=== PATIENT | female | born 1980 | race Caucasian/White ===

== ENCOUNTER 2016-08-02 10:53 | Emergency (ER) | payer OTHER ==
[2016-08-02 11:26] LABS: BASO % 0.3 % (0.0-1.0); EOS # 0.1 K/mm3 (0.0-0.50); EOS % 1.8 % (0.0-3.0); LARGE UNSTAINED CELL # 0.1 K/mm3 (0.0-0.4); LARGE UNSTAINED CELL % 2.7 % (0.0-4.0); LYMPH # 1.2 K/mm3 (1.5-4.5); LYMPH % 27.1 % (24.0-44.0); MEAN CORPUSCULAR HEMOGLOBIN 31.2 pg (27.0-33.0); MEAN CORPUSCULAR HGB CONC 35.3 g/dl (32.0-36.5); MEAN CORPUSCULAR VOLUME 88.4 fl (80.0-96.0); MONO # 0.2 K/mm3 (0.0-0.8); MONO % 4.6 % (0.0-5.0); NEUTROPHILS # 2.9 K/mm3 (1.8-7.7); NEUTROPHILS % 63.5 % (36.0-66.0); PLATELET COUNT, AUTOMATED 249 k/mm3 (150-450); RED CELL DISTRIBUTION WIDTH 11.3 % (11.5-14.5); WHITE BLOOD COUNT 4.5 K/mm3 (4.0-10.0)
[2016-08-02 11:51] LABS: CONTROL LINE MONO INT CTR LINE PRESENT
--- NOTE | 2016-08-02 11:51 | REP ---
Clinical: Acute cough. Technique: PA and lateral. Comparison: None. Findings: Mediastinum and cardiac silhouette are normal. Blunting to the right costophrenic angle cannot exclude small right pleural reaction. No obvious consolidation, or pneumothorax. Skeletal structures intact. Impression: Cannot exclude small right pleural reaction. Signed by Waldemar Cortez MD 08/02/2016 11:42 A
[2016-08-02 11:53] LABS: ANION GAP 8 MEQ/L (8-16); BLOOD UREA NITROGEN 8 MG/DL (7-18); CALCIUM LEVEL 8.5 MG/DL (8.5-10.1); CARBON DIOXIDE LEVEL 29 MEQ/L (21-32); CHLORIDE LEVEL 102 MEQ/L (98-107); CREATININE FOR GFR 0.85 MG/DL (0.55-1.02); GLOMERULAR FILTRATION RATE > 60.0 (>60); GLUCOSE, FASTING 93 MG/DL (70-105); POTASSIUM SERUM 3.7 MEQ/L (3.5-5.1); SODIUM LEVEL 139 MEQ/L (136-145)
--- NOTE | 2016-08-02 12:27 | EDDOCDS ---
Physician Documentation [facility] Name: Vijaya Hoyt Age: 36 yrs Sex: Female : 1980 Arrival Date: 08/02/2016 Time: 10:53 Bed Private MD: Cali Gutiérrez W Disposition: 08/02/16 12:18 Discharged to Home/Self Care. Impression: Acute bronchitis, Acute pharyngitis. - Condition is Stable. - Discharge Instructions: Pharyngitis, Acute Bronchitis, [id number]. - Prescriptions for Prednisone 20 mg Oral Tablet - take 3 tablet by ORAL route once daily for 5 days; 15 tablet. Claritin 10 mg Oral Tablet - take 1 tablet by ORAL route once daily As needed; 30 tablet. Zithromax Z- Trevon 250 mg Oral Tablet - take 1 tablet by ORAL route as directed for 5 days Day 1- take two tablets once. Day 2, 3, 4 , 5 take one tablet once daily.; 6 tablet. Mucinex 600 mg - take 1 tablet by ORAL route 2 times per day; 30 tablet. Albuterol Sulfate 90 mcg/actuation Inhalation HFA Aerosol Inhaler - inhale 2 puff by INHALATION route every 4 hours As needed; 1 Inhaler. - Medication Reconciliation, Local Pharmacy Hours form. - Follow up: Cali Gutiérrez; When: 1 - 2 days; Reason: Recheck today's complaints, Continuance of care. Follow up: Emergency Department; Reason: Worsening of conditions. - Problem is new. - Symptoms have improved. Historical: - Allergies: no known allergies; - Home Meds: 1. none - PSHx: none; - Social history: Smoking status: Patient uses tobacco products, light tobacco smoker. No barriers to communication noted, The patient speaks fluent Cameroonian. - Family history: Not pertinent. - : The pt / caregiver states he / she is not on anticoagulants. Home medication list is obtained from the patient. - Exposure Risk Screening:: None identified. 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 7 in. (170.18 cm) (R); Pain 9/10; 12:23 BP 127 / 96; Pulse 89; Resp 16; Temp 99.3(T); Pulse Ox 97% on R/A; Pain 8/10; ar3 10:55 Body Mass Index 24.43 (70.76 kg, 170.18 cm) elp 12:23 back pain is an 8 out of 10. ar3 MDM: 11:06 Obtain sample by nasopharyngeal swab ordered. jk8 11:07 CBC with Diff Ordered. EDMS 11:07 BMP Ordered. EDMS 11:07 Monoscreen Ordered. EDMS 11:07 -Influenza A&B Rapid Antigen - Nose Ordered. EDMS 11:07 Chest, 2 View (pa\E\lat) Ordered. EDMS 11:51 CBC with Diff Reviewed. jk8 11:51 -Influenza A&B Rapid Antigen - Nose Reviewed. jk8 11:57 BMP Reviewed. jk8 11:57 Monoscreen Reviewed. jk8 12:01 Chest, 2 View (pa\E\lat) Reviewed. jk8 12:19 COUNTS INCLUDE 234 BEDS AT THE [facility] Payment Agreement was scanned into [employer] and attached to record. jp5 12:19 Financial registration complete. jp5 Signatures: Dispatcher [employer] Nathalie Leal, JAMES RN Keila Cox PA-C PA-C ef1 Fritz Castanon jp5 Luiz Keith PA-C PA-C jk8 The chart was reviewed and I authenticate all verbal orders and agree with the evaluation and treatment provided.Attachments: 12:19 COUNTS INCLUDE 234 BEDS AT THE [facility] Payment Agreement jp5 MTDD
--- NOTE | 2016-08-02 12:27 | EDDOCDS ---
Nurse's Notes [facility] Name: Vijaya Hoyt Age: 36 yrs Sex: Female : 1980 Arrival Date: 08/02/2016 Time: 10:53 Bed PR Private MD: Cali Gutiérrez W Diagnosis: Acute bronchitis;Acute pharyngitis Presentation: 08/02 10:56 Presenting complaint: Patient states: Pt presents with fever cough headache lower back dls pain x 4 days coughing so hard she vomits. Acute neurological deficits are not present. Mechanism of Injury: No Mechanism of Injury. Adult Sepsis Screening: The patient does not have new or worsening altered mentation. Patient's respiratory rate is less than 22. Systolic blood pressure is greater than 100. Patient has a qSOFA score of 0- Negative Sepsis Screen. Suicide/Homicide risk assessment- the patient denies having any suicidal and/or homicidal ideations and does not present with any other emotional, behavioral or mental health complaints. Status: The patient is a dependent. Transition of care: patient was not received from another setting of care. 10:56 Acuity: PA Level 4 dls 10:56 Method Of Arrival: Walkin/Carried/Asstd dls Triage Assessment: 10:58 General: Appears uncomfortable, well developed, well nourished, well groomed, Behavior dls is cooperative. Pain: Pain currently is 9 out of 10 on a pain scale. 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 none - PSHx: none; - Social history: Smoking status: Patient uses tobacco products, light tobacco smoker. No barriers to communication noted, The patient speaks fluent Hungarian. - Family history: Not pertinent. - : The pt / caregiver states he / she is not on anticoagulants. Home medication list is obtained from the patient. - Exposure Risk Screening:: None identified. Screenin:25 Screening information is obtained from the patient. Fall risk: No risks identified. dls Assistance ADL's: requires no assistance with activities of daily living. Abuse/DV Screen: The patient / caregiver reports he/she is: not in a situation that causes fear, pain or injury. Nutritional screening: No deficits noted. Advance Directives: Currently, there is no health care proxy. There is no active DNR order. There is no Power of Helmet Binder. home support is adequate. Assessment: 12:25 General: Appears uncomfortable, Behavior is cooperative. Pain: Location: back Pain dls currently is 3 out of 10 on a pain scale. Neurological: No deficits noted. Respiratory: Airway is patent Respiratory effort is even, unlabored, Reports cough that is persistent. Derm: Skin is pink, warm & dry. Musculoskeletal: Circulation, motion, and sensation intact. Vital Signs: 10:55 BP 149 / 98; Pulse 104; Resp 20; Temp 100.2(O); Pulse Ox 95% on R/A; Weight 70.76 kg elp (R); Height 5 ft. 7 in. (170.18 cm) (R); Pain 9/10; 12:23 BP 127 / 96; Pulse 89; Resp 16; Temp 99.3(T); Pulse Ox 97% on R/A; Pain 8/10; ar3 10:55 Body Mass Index 24.43 (70.76 kg, 170.18 cm) elp 12:23 back pain is an 8 out of 10. ar3 Vitals: 10:55 Log In Time: August 02, 2016 at 10:53. elp ED Course: 10:54 Patient visited by Lyric Duncan PCA. elp 10:54 Cali Gutiérrez is Private Physician. elp 10:54 Patient moved to Waiting elp 10:55 Patient visited by Lyric Duncan PCA. elp 10:55 Patient moved to Pre RCE elp 10:57 Triage Initiated dls 10:59 Patient moved to Triage 1 dls 11:00 Luiz Keith PA-C is PHCP. jk8 11:00 Diego Mahan MD is Attending Physician. jk8 11:16 Patient moved to PR2 / 26 ar3 11:16 Monoscreen Sent. ar3 11:16 -Influenza A&B Rapid Antigen - Nose Sent. ar3 11:16 BMP Sent. ar3 11:16 CBC with Diff Sent. ar3 11:49 Patient visited by Luiz Keith PA-C. jk8 11:59 Chest, 2 View (pa\E\lat) Returned. EDMS 12:06 PHCP role handed off by Luiz Keith PA-C ef1 12:06 [facility]ila Tam [facility] ef1 12:08 Patient visited by Keila Tam PA-C. ef1 12:18 Cali Gutiérrez is Referral Physician. ef1 12:19 COUNT INCLUDES THE [facility] Payment Agreement was scanned into [employer] and attached to record. jp5 12:24 Patient visited by Yuliana Negro PCA. ar3 12:25 The patient / caregiver is instructed regarding the plan of care and ED course. Patient dls has correct armband on for positive identification. Placed in gown. Bed in low position. Call light in reach. Adult w/ patient. 12:26 No IV's were initiated during this patient's visit. No procedures done that require dls assistance. Order Results: Lab Order: CBC with Diff; SPEC'M 08/02/16 11:15 Test: WHITE BLOOD COUNT; Value: 4.5; Range: 4.0-10.0; Units: K/mm3; Status: F Test: RED BLOOD COUNT; Value: 4.71; Range: 4.00-5.40; Units: M/mm3; Status: F Test: HEMOGLOBIN; Value: 14.7; Range: 12.0-16.0; Units: g/dl; Status: F Test: HEMATOCRIT; Value: 41.6; Range: 36.0-47.0; Units: %; Status: F Test: MEAN CORPUSCULAR VOLUME; Value: 88.4; Range: 80.0-96.0; Units: fl; Status: F Test: MEAN CORPUSCULAR HEMOGLOBIN; Value: 31.2; Range: 27.0-33.0; Units: pg; Status: F Test: MEAN CORPUSCULAR HGB CONC; Value: 35.3; Range: 32.0-36.5; Units: g/dl; Status: F Test: RED CELL DISTRIBUTION WIDTH; Value: 11.3; Range: 11.5-14.5; Abnormal: Below low normal; Units: %; Status: F Test: PLATELET COUNT, AUTOMATED; Value: 249; Range: 150-450; Units: k/mm3; Status: F Test: NEUTROPHILS %; Value: 63.5; Range: 36.0-66.0; Units: %; Status: F Test: LYMPH %; Value: 27.1; Range: 24.0-44.0; Units: %; Status: F Test: MONO %; Value: 4.6; Range: 0.0-5.0; Units: %; Status: F Test: EOS %; Value: 1.8; Range: 0.0-3.0; Units: %; Status: F Test: BASO %; Value: 0.3; Range: 0.0-1.0; Units: %; Status: F Test: LARGE UNSTAINED CELL %; Value: 2.7; Range: 0.0-4.0; Units: %; Status: F Test: NEUTROPHILS #; Value: 2.9; Range: 1.8-7.7; Units: K/mm3; Status: F Test: LYMPH #; Value: 1.2; Range: 1.5-4.5; Abnormal: Below low normal; Units: K/mm3; Status: F Test: MONO #; Value: 0.2; Range: 0.0-0.8; Units: K/mm3; Status: F Test: EOS #; Value: 0.1; Range: 0.0-0.50; Units: K/mm3; Status: F Test: BASO #; Value: 0.0; Range: 0.0-0.2; Units: K/mm3; Status: F Test: LARGE UNSTAINED CELL #; Value: 0.1; Range: 0.0-0.4; Units: K/mm3; Status: F Lab Order: [facility]; SPEC'M 08/02/16 11:15 Test: GLUCOSE, FASTING; Value: 93; Range: 70-105; Units: MG/DL; Status: F Test: BLOOD UREA NITROGEN; Value: 8; Range: 7-18; Units: MG/DL; Status: F Test: CREATININE FOR GFR; Value: 0.85; Range: 0.55-1.02; Units: MG/DL; Status: F Test: SODIUM LEVEL; Range: 136-145; Units: MEQ/L; Status: I Test: POTASSIUM SERUM; Range: 3.5-5.1; Units: MEQ/L; Status: I Test: CHLORIDE LEVEL; Range: 98-107; Units: MEQ/L; Status: I Test: CARBON DIOXIDE LEVEL; Range: 21-32; Units: MEQ/L; Status: I Test: ANION GAP; Range: 8-16; Units: MEQ/L; Status: I Test: CALCIUM LEVEL; Range: 8.5-10.1; Units: MG/DL; Status: I Test: GLOMERULAR FILTRATION RATE; Value: > 60.0; Range: >60; Status: F Test: SODIUM LEVEL; Value: 139; Range: 136-145; Units: MEQ/L; Status: F Test: POTASSIUM SERUM; Value: 3.7; Range: 3.5-5.1; Units: MEQ/L; Status: F Test: CHLORIDE LEVEL; Value: 102; Range: 98-107; Units: MEQ/L; Status: F Test: CARBON DIOXIDE LEVEL; Value: 29; Range: 21-32; Units: MEQ/L; Status: F Test: ANION GAP; Value: 8; Range: 8-16; Units: MEQ/L; Status: F Test: CALCIUM LEVEL; Value: 8.5; Range: 8.5-10.1; Units: MG/DL; Status: F Test Note: ; Units are mL/min/1.73 m2 Chronic Kidney Disease Staging per NKF: Stage I & II GFR >=60 Normal to Mildly Decreased Stage III GFR 30-59 Moderately Decreased Stage IV GFR 15-29 Severely Decreased Stage V GFR <15 Very Little GFR Left ESRD GFR <15 on ELECTRONIC WARFARE SPECIALIST Lab Order: -Influenza A&B Rapid Antigen - Nose; SPEC'M 08/02/16 11:15 Test: INFLUENZA A RAPID SCR by ICA; Value: INFLUENZA A RESULTS NEGATIVE; Status: F Test: INFLUENZA A RAPID SCR by ICA; Value: Comments:; Status: F Test: INFLUENZA B RAPID SCR by ICA; Value: INFLUENZA B RESULTS NEGATIVE; Status: F Test Note: ; The Influenza test is a direct rapid immunoassay for the qualitative detection of Influenza viral antigen. Cell culture (Viral Culture) testing should be considered to confirm NEGATIVE results and to assist in detecting other viruses that can provide similar clinical symptoms. Please contact the lab within 24 hours ([phone]) if confirmatory testing is desired. Lab Order: Monoscreen; SPEC'M 08/02/16 11:15 Test: MONO SCRN; Value: NEGATIVE; Range: NEGATIVE; Status: F Radiology Order: Chest, 2 View (pa\E\lat) Test: Chest, 2 View (pa\E\lat) REASON FOR EXAMINATION: Cough; Clinical: Acute cough.; ; Technique: PA and lateral.; ; Comparison: None.; ; Findings:; Mediastinum and cardiac silhouette are normal. Blunting to the right; costophrenic angle cannot exclude small right pleural reaction. No obvious; consolidation, or pneumothorax. Skeletal structures intact.; ; Impression:; Cannot exclude small right pleural reaction.; ; ; Signed by; Waldemar Cortez MD 08/02/2016 11:42 A; Outcome: 12:18 Discharge ordered by Provider. ef1 12:26 Discharge Assessment: patient administered narcotics - no. The following High Risk dls Discharge criteria are identified: None. Discharged to home ambulatory, with significant other. Condition: stable. Discharge instructions given to patient, Instructed on discharge instructions, follow up and referral plans. medication usage, Demonstrated understanding of instructions, medications, Pt was receptive of discharge instructions/ teaching. Prescriptions given X 5. No special radiology studies were completed. Property sent home with patient. 12:26 Patient left the ED. dls Signatures: Dispatcher [employer] EDMS Nathalie Vallejo, JAMES RN dls Keila Tam, BRISEIDA GOINS ef1 Yuliana Negro, COLOR BLENDER COLOR BLENDER ar3 Lyric Duncan, COLOR BLENDER COLOR BLENDER elp Fritz Castanon jp5 Luiz Keith PA-C PA-C jk8 MTDD
--- NOTE | 2016-08-04 13:27 | EDDOCDS ---
Nurse's Notes [facility] Name: Vijaya Hoyt Age: 36 yrs Sex: Female : 1980 Arrival Date: 08/02/2016 Time: 10:53 Bed PR Private MD: Cali Gutiérrez W Diagnosis: Acute bronchitis;Acute pharyngitis Presentation: 08/02 10:56 Presenting complaint: Patient states: Pt presents with fever cough headache lower back dls pain x 4 days coughing so hard she vomits. Acute neurological deficits are not present. Mechanism of Injury: No Mechanism of Injury. Adult Sepsis Screening: The patient does not have new or worsening altered mentation. Patient's respiratory rate is less than 22. Systolic blood pressure is greater than 100. Patient has a qSOFA score of 0- Negative Sepsis Screen. Suicide/Homicide risk assessment- the patient denies having any suicidal and/or homicidal ideations and does not present with any other emotional, behavioral or mental health complaints. Status: The patient is a dependent. Transition of care: patient was not received from another setting of care. 10:56 Acuity: PA Level 4 dls 10:56 Method Of Arrival: Walkin/Carried/Asstd dls Triage Assessment: 10:58 General: Appears uncomfortable, well developed, well nourished, well groomed, Behavior dls is cooperative. Pain: Pain currently is 9 out of 10 on a pain scale. 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 none - PSHx: none; - Social history: Smoking status: Patient uses tobacco products, light tobacco smoker. No barriers to communication noted, The patient speaks fluent Welsh. - Family history: Not pertinent. - : The pt / caregiver states he / she is not on anticoagulants. Home medication list is obtained from the patient. - Exposure Risk Screening:: None identified. Screenin:25 Screening information is obtained from the patient. Fall risk: No risks identified. dls Assistance ADL's: requires no assistance with activities of daily living. Abuse/DV Screen: The patient / caregiver reports he/she is: not in a situation that causes fear, pain or injury. Nutritional screening: No deficits noted. Advance Directives: Currently, there is no health care proxy. There is no active DNR order. There is no Power of Cognos Architect. home support is adequate. Assessment: 12:25 General: Appears uncomfortable, Behavior is cooperative. Pain: Location: back Pain dls currently is 3 out of 10 on a pain scale. Neurological: No deficits noted. Respiratory: Airway is patent Respiratory effort is even, unlabored, Reports cough that is persistent. Derm: Skin is pink, warm & dry. Musculoskeletal: Circulation, motion, and sensation intact. Vital Signs: 10:55 BP 149 / 98; Pulse 104; Resp 20; Temp 100.2(O); Pulse Ox 95% on R/A; Weight 70.76 kg elp (R); Height 5 ft. 7 in. (170.18 cm) (R); Pain 9/10; 12:23 BP 127 / 96; Pulse 89; Resp 16; Temp 99.3(T); Pulse Ox 97% on R/A; Pain 8/10; ar3 10:55 Body Mass Index 24.43 (70.76 kg, 170.18 cm) elp 12:23 back pain is an 8 out of 10. ar3 Vitals: 10:55 Log In Time: August 02, 2016 at 10:53. elp ED Course: 10:54 Patient visited by Lyric Duncan PCA. elp 10:54 Cali Gutiérrez is Private Physician. elp 10:54 Patient moved to Waiting elp 10:55 Patient visited by Lyric Duncan PCA. elp 10:55 Patient moved to Pre RCE elp 10:57 Triage Initiated dls 10:59 Patient moved to Triage 1 dls 11:00 Luiz Keith PA-C is PHCP. jk8 11:00 Diego Mahan MD is Attending Physician. jk8 11:16 Patient moved to PR2 / 26 ar3 11:16 Monoscreen Sent. ar3 11:16 -Influenza A&B Rapid Antigen - Nose Sent. ar3 11:16 BMP Sent. ar3 11:16 CBC with Diff Sent. ar3 11:49 Patient visited by Luiz Keith PA-C. jk8 11:59 Chest, 2 View (pa\E\lat) Returned. EDMS 12:06 PHCP role handed off by Luiz Keith PA-C ef1 12:06 Keila Tam PA-C is PHCP. ef1 12:08 Patient visited by Keila Tam PA-C. ef1 12:18 Cali Gutiérrez is Referral Physician. ef1 12:19 [facility] Payment Agreement was scanned into [employer] and attached to record. jp5 12:24 Patient visited by Yuliana Negro PCA. ar3 12:25 The patient / caregiver is instructed regarding the plan of care and ED course. Patient dls has correct armband on for positive identification. Placed in gown. Bed in low position. Call light in reach. Adult w/ patient. 12:26 No IV's were initiated during this patient's visit. No procedures done that require dls assistance. 12:30 Patient name changed from Vijaya\S\\S\Lai\S\ to Vijaya\S\Monice\S\Lai. EDMS 16:33 T-Sheet-- Draft Copy was scanned into [employer] and attached to record. klr Order Results: Lab Order: CBC with Diff; SPEC'M 08/02/16 11:15 Test: WHITE BLOOD COUNT; Value: 4.5; Range: 4.0-10.0; Units: K/mm3; Status: F Test: RED BLOOD COUNT; Value: 4.71; Range: 4.00-5.40; Units: M/mm3; Status: F Test: HEMOGLOBIN; Value: 14.7; Range: 12.0-16.0; Units: g/dl; Status: F Test: HEMATOCRIT; Value: 41.6; Range: 36.0-47.0; Units: %; Status: F Test: MEAN CORPUSCULAR VOLUME; Value: 88.4; Range: 80.0-96.0; Units: fl; Status: F Test: MEAN CORPUSCULAR HEMOGLOBIN; Value: 31.2; Range: 27.0-33.0; Units: pg; Status: F Test: MEAN CORPUSCULAR HGB CONC; Value: 35.3; Range: 32.0-36.5; Units: g/dl; Status: F Test: RED CELL DISTRIBUTION WIDTH; Value: 11.3; Range: 11.5-14.5; Abnormal: Below low normal; Units: %; Status: F Test: PLATELET COUNT, AUTOMATED; Value: 249; Range: 150-450; Units: k/mm3; Status: F Test: NEUTROPHILS %; Value: 63.5; Range: 36.0-66.0; Units: %; Status: F Test: LYMPH %; Value: 27.1; Range: 24.0-44.0; Units: %; Status: F Test: MONO %; Value: 4.6; Range: 0.0-5.0; Units: %; Status: F Test: EOS %; Value: 1.8; Range: 0.0-3.0; Units: %; Status: F Test: BASO %; Value: 0.3; Range: 0.0-1.0; Units: %; Status: F Test: LARGE UNSTAINED CELL %; Value: 2.7; Range: 0.0-4.0; Units: %; Status: F Test: NEUTROPHILS #; Value: 2.9; Range: 1.8-7.7; Units: K/mm3; Status: F Test: LYMPH #; Value: 1.2; Range: 1.5-4.5; Abnormal: Below low normal; Units: K/mm3; Status: F Test: MONO #; Value: 0.2; Range: 0.0-0.8; Units: K/mm3; Status: F Test: EOS #; Value: 0.1; Range: 0.0-0.50; Units: K/mm3; Status: F Test: BASO #; Value: 0.0; Range: 0.0-0.2; Units: K/mm3; Status: F Test: LARGE UNSTAINED CELL #; Value: 0.1; Range: 0.0-0.4; Units: K/mm3; Status: F Lab Order: [facility]; SPEC'M 08/02/16 11:15 Test: GLUCOSE, FASTING; Value: 93; Range: 70-105; Units: MG/DL; Status: F Test: BLOOD UREA NITROGEN; Value: 8; Range: 7-18; Units: MG/DL; Status: F Test: CREATININE FOR GFR; Value: 0.85; Range: 0.55-1.02; Units: MG/DL; Status: F Test: SODIUM LEVEL; Range: 136-145; Units: MEQ/L; Status: I Test: POTASSIUM SERUM; Range: 3.5-5.1; Units: MEQ/L; Status: I Test: CHLORIDE LEVEL; Range: 98-107; Units: MEQ/L; Status: I Test: CARBON DIOXIDE LEVEL; Range: 21-32; Units: MEQ/L; Status: I Test: ANION GAP; Range: 8-16; Units: MEQ/L; Status: I Test: CALCIUM LEVEL; Range: 8.5-10.1; Units: MG/DL; Status: I Test: GLOMERULAR FILTRATION RATE; Value: > 60.0; Range: >60; Status: F Test: SODIUM LEVEL; Value: 139; Range: 136-145; Units: MEQ/L; Status: F Test: POTASSIUM SERUM; Value: 3.7; Range: 3.5-5.1; Units: MEQ/L; Status: F Test: CHLORIDE LEVEL; Value: 102; Range: 98-107; Units: MEQ/L; Status: F Test: CARBON DIOXIDE LEVEL; Value: 29; Range: 21-32; Units: MEQ/L; Status: F Test: ANION GAP; Value: 8; Range: 8-16; Units: MEQ/L; Status: F Test: CALCIUM LEVEL; Value: 8.5; Range: 8.5-10.1; Units: MG/DL; Status: F Test Note: ; Units are mL/min/1.73 m2 Chronic Kidney Disease Staging per NKF: Stage I & II GFR >=60 Normal to Mildly Decreased Stage III GFR 30-59 Moderately Decreased Stage IV GFR 15-29 Severely Decreased Stage V GFR <15 Very Little GFR Left ESRD GFR <15 on EDUCATIONAL INSTITUTION CURATOR Lab Order: -Influenza A&B Rapid Antigen - Nose; SPEC'M 08/02/16 11:15 Test: INFLUENZA A RAPID SCR by ICA; Value: INFLUENZA A RESULTS NEGATIVE; Status: F Test: INFLUENZA A RAPID SCR by ICA; Value: Comments:; Status: F Test: INFLUENZA B RAPID SCR by ICA; Value: INFLUENZA B RESULTS NEGATIVE; Status: F Test Note: ; The Influenza test is a direct rapid immunoassay for the qualitative detection of Influenza viral antigen. Cell culture (Viral Culture) testing should be considered to confirm NEGATIVE results and to assist in detecting other viruses that can provide similar clinical symptoms. Please contact the lab within 24 hours ([phone]) if confirmatory testing is desired. Lab Order: Monoscreen; SPEC'M 08/02/16 11:15 Test: MONO SCRN; Value: NEGATIVE; Range: NEGATIVE; Status: F Radiology Order: Chest, 2 View (pa\E\lat) Test: Chest, 2 View (pa\E\lat) REASON FOR EXAMINATION: Cough; Clinical: Acute cough.; ; Technique: PA and lateral.; ; Comparison: None.; ; Findings:; Mediastinum and cardiac silhouette are normal. Blunting to the right; costophrenic angle cannot exclude small right pleural reaction. No obvious; consolidation, or pneumothorax. Skeletal structures intact.; ; Impression:; Cannot exclude small right pleural reaction.; ; ; Signed by; Waldemar Cortez MD 08/02/2016 11:42 A; Outcome: 12:18 Discharge ordered by Provider. ef1 12:26 Discharge Assessment: patient administered narcotics - no. The following High Risk dls Discharge criteria are identified: None. Discharged to home ambulatory, with significant other. Condition: stable. Discharge instructions given to patient, Instructed on discharge instructions, follow up and referral plans. medication usage, Demonstrated understanding of instructions, medications, Pt was receptive of discharge instructions/ teaching. Prescriptions given X 5. No special radiology studies were completed. Property sent home with patient. 12:26 Patient left the ED. dls Signatures: Dispatcher [employer] EDMS Nathalie Vallejo RN RN dls Keila Tam, BRISEIDA GOINS ef1 Yuliana Negro, KISS MIXER KISS MIXER ar3 Lyric Duncan, KISS MIXER KISS MIXER amirap Fritz Castanon jp5 Luiz Keith PA-C PA-C jk8 Leigh Ann Cordova Chart Complete MTDD
--- NOTE | 2016-08-04 13:27 | EDDOCDS ---
Physician Documentation [facility] Name: Vijaya Hoyt Age: 36 yrs Sex: Female : 1980 Arrival Date: 08/02/2016 Time: 10:53 Bed Private MD: Cali Gutiérrez W Disposition: 08/02/16 12:18 Discharged to Home/Self Care. Impression: Acute bronchitis, Acute pharyngitis. - Condition is Stable. - Discharge Instructions: Pharyngitis, Acute Bronchitis, [id number]. - Prescriptions for Prednisone 20 mg Oral Tablet - take 3 tablet by ORAL route once daily for 5 days; 15 tablet. Claritin 10 mg Oral Tablet - take 1 tablet by ORAL route once daily As needed; 30 tablet. Zithromax Z- Trevon 250 mg Oral Tablet - take 1 tablet by ORAL route as directed for 5 days Day 1- take two tablets once. Day 2, 3, 4 , 5 take one tablet once daily.; 6 tablet. Mucinex 600 mg - take 1 tablet by ORAL route 2 times per day; 30 tablet. Albuterol Sulfate 90 mcg/actuation Inhalation HFA Aerosol Inhaler - inhale 2 puff by INHALATION route every 4 hours As needed; 1 Inhaler. - Medication Reconciliation, Local Pharmacy Hours form. - Follow up: Cali Gutiérrez; When: 1 - 2 days; Reason: Recheck today's complaints, Continuance of care. Follow up: Emergency Department; Reason: Worsening of conditions. - Problem is new. - Symptoms have improved. Historical: - Allergies: no known allergies; - Home Meds: 1. none - PSHx: none; - Social history: Smoking status: Patient uses tobacco products, light tobacco smoker. No barriers to communication noted, The patient speaks fluent [place]. - Family history: Not pertinent. - : The pt / caregiver states he / she is not on anticoagulants. Home medication list is obtained from the patient. - Exposure Risk Screening:: None identified. 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 7 in. (170.18 cm) (R); Pain 9/10; 12:23 BP 127 / 96; Pulse 89; Resp 16; Temp 99.3(T); Pulse Ox 97% on R/A; Pain 8/10; ar3 10:55 Body Mass Index 24.43 (70.76 kg, 170.18 cm) elp 12:23 back pain is an 8 out of 10. ar3 MDM: 11:06 Obtain sample by nasopharyngeal swab ordered. jk8 11:07 CBC with Diff Ordered. EDMS 11:07 BMP Ordered. EDMS 11:07 Monoscreen Ordered. EDMS 11:07 -Influenza A&B Rapid Antigen - Nose Ordered. EDMS 11:07 Chest, 2 View (pa\E\lat) Ordered. EDMS 11:51 CBC with Diff Reviewed. jk8 11:51 -Influenza A&B Rapid Antigen - Nose Reviewed. jk8 11:57 BMP Reviewed. jk8 11:57 Monoscreen Reviewed. jk8 12:01 Chest, 2 View (pa\E\lat) Reviewed. jk8 12:19 [facility] Payment Agreement was scanned into [employer] and attached to record. 5 12:19 Financial registration complete. 5 16:33 T-Sheet-- Draft Copy was scanned into [employer] and attached to record. klr Signatures: Dispatcher [employer] Nathalie Leal, RN RN Keila Cox PA-C PA-C ef1 Fritz Castanon jp5 Luiz Keith PA-C PALeidy [email or web address] Leigh Ann Cordova The chart was reviewed and I authenticate all verbal orders and agree with the evaluation and treatment provided.Attachments: 12:19 [facility] Payment Agreement 5 16:33 T-Sheet-- Draft Copy klr Chart Complete MTDD
--- NOTE | 2016-08-04 13:27 | EDDOCDS ---
Physician Documentation [facility] Name: Vijaya Hoyt Age: 36 yrs Sex: Female : 1980 Arrival Date: 08/02/2016 Time: 10:53 Bed Private MD: Cali Gutiérrez W Disposition: 08/02/16 12:18 Discharged to Home/Self Care. Impression: Acute bronchitis, Acute pharyngitis. - Condition is Stable. - Discharge Instructions: Pharyngitis, Acute Bronchitis, [id number]. - Prescriptions for Prednisone 20 mg Oral Tablet - take 3 tablet by ORAL route once daily for 5 days; 15 tablet. Claritin 10 mg Oral Tablet - take 1 tablet by ORAL route once daily As needed; 30 tablet. Zithromax Z- Trevon 250 mg Oral Tablet - take 1 tablet by ORAL route as directed for 5 days Day 1- take two tablets once. Day 2, 3, 4 , 5 take one tablet once daily.; 6 tablet. Mucinex 600 mg - take 1 tablet by ORAL route 2 times per day; 30 tablet. Albuterol Sulfate 90 mcg/actuation Inhalation HFA Aerosol Inhaler - inhale 2 puff by INHALATION route every 4 hours As needed; 1 Inhaler. - Medication Reconciliation, Local Pharmacy Hours form. - Follow up: Cali Gutiérrez; When: 1 - 2 days; Reason: Recheck today's complaints, Continuance of care. Follow up: Emergency Department; Reason: Worsening of conditions. - Problem is new. - Symptoms have improved. Historical: - Allergies: no known allergies; - Home Meds: 1. none - PSHx: none; - Social history: Smoking status: Patient uses tobacco products, light tobacco smoker. No barriers to communication noted, The patient speaks fluent [place]. - Family history: Not pertinent. - : The pt / caregiver states he / she is not on anticoagulants. Home medication list is obtained from the patient. - Exposure Risk Screening:: None identified. 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 7 in. (170.18 cm) (R); Pain 9/10; 12:23 BP 127 / 96; Pulse 89; Resp 16; Temp 99.3(T); Pulse Ox 97% on R/A; Pain 8/10; ar3 10:55 Body Mass Index 24.43 (70.76 kg, 170.18 cm) elp 12:23 back pain is an 8 out of 10. ar3 MDM: 11:06 Obtain sample by nasopharyngeal swab ordered. jk8 11:07 CBC with Diff Ordered. EDMS 11:07 BMP Ordered. EDMS 11:07 Monoscreen Ordered. EDMS 11:07 -Influenza A&B Rapid Antigen - Nose Ordered. EDMS 11:07 Chest, 2 View (pa\E\lat) Ordered. EDMS 11:51 CBC with Diff Reviewed. jk8 11:51 -Influenza A&B Rapid Antigen - Nose Reviewed. jk8 11:57 BMP Reviewed. jk8 11:57 Monoscreen Reviewed. jk8 12:01 Chest, 2 View (pa\E\lat) Reviewed. jk8 12:19 [facility] Payment Agreement was scanned into [employer] and attached to record. 5 12:19 Financial registration complete. 5 16:33 T-Sheet-- Draft Copy was scanned into [employer] and attached to record. klr Signatures: Dispatcher [employer] Nathalie Leal, RN RN Keila Cox PA-C PA-C ef1 Fritz Castanon jp5 Luiz Keith PA-C PALeidy [email or web address] Leigh Ann Cordova The chart was reviewed and I authenticate all verbal orders and agree with the evaluation and treatment provided.Attachments: 12:19 [facility] Payment Agreement 5 16:33 T-Sheet-- Draft Copy klr Chart Complete MTDD
== END 2016-08-02 12:26 | disposition home or self-care (01) ==
LOC: M ED 10:53
DX: J20.9 Acute bronchitis, unspecified (principal); J02.9 Acute pharyngitis, unspecified; R53.81 Other malaise; R53.83 Other fatigue; F17.210 Nicotine dependence, cigarettes, uncomplicated